=== PATIENT | male | born 1960 | race Caucasian/White ===

== ENCOUNTER 2019-09-29 10:28 | Emergency (ER) | payer MEDICAID ==
[~2019-09-29] VITALS: Ht 167.6 cm; Wt 83.9 kg
[2019-09-29 10:34] VITALS: BP_SYST 131
[2019-09-29] MEDS ORDERED: PHE25 GT (10:50)
[2019-09-29] MEDS ORDERED: MOM GT (10:50)
[2019-09-29] MEDS ORDERED: LIP40 GT (10:50)
[2019-09-29] MEDS ORDERED: CARV25TA55 GT (10:50)
[2019-09-29] MEDS ORDERED: LEVE500T53 GT (10:50)
[2019-09-29] MEDS ORDERED: INSU100V SQ (10:50)
[2019-09-29] MEDS ORDERED: ACET325T53 GT (10:50)
[2019-09-29] MEDS ORDERED: [UNRECOGNIZED DRUG - OTHER] GT (10:50)
[2019-09-29] MEDS ORDERED: NOR10 GT (10:50)
[2019-09-29] MEDS ORDERED: FAMO-132 GT (10:50)
[2019-09-29] MEDS ORDERED: COLL100 GT (10:50)
[2019-09-29 11:05] LABS: BASOPHILS % (AUTO) 0.3 % (0.0-2.0); EOSINOPHILS # (AUTO) 0.2 K/uL (0.0-0.4); EOSINOPHILS % (AUTO) 1.7 % (0.0-4.0); HEMATOCRIT 42.6 % (36-54); HEMOGLOBIN 14.1 g/dL (14.0-18.0); LYMPHOCYTES # (AUTO) 1.9 K/uL (1.0-5.5); LYMPHOCYTES % (AUTO) 17.2 % (20.5-51.5); MEAN CORPUSCULAR HEMOGLOBIN 31 pg (27-31); MEAN CORPUSCULAR HGB CONC 33 % (32-36); MEAN CORPUSCULAR VOLUME 93 fL (79.0-98.0); MONOCYTES # (AUTO) 1.1 K/uL (0.0-1.0); MONOCYTES % (AUTO) 9.7 % (1.7-9.3); NEUTROPHILS % (AUTO) 71.1 % (40.0-70.0); PLATELET COUNT (AUTO) 170 K/uL (130-430); RED BLOOD CELL COUNT(AUTO) 4.57 MIL/uL (4.2-6.2); RED CELL DISTRIBUTION WIDTH 15.3 % (9.0-15.0); WHITE BLOOD COUNT (AUTO) 11.3 K/uL (4.8-10.8)
[2019-09-29] MEDS: NACL 0.9% 1,000 ML IV ONE (11:13)
[2019-09-29] MEDS: ASPIRIN 81 MG TAB.CHEW PO ONE (11:14)
[2019-09-29 11:19] LABS: ANION GAP 3 (5-15); CALCIUM 8.1 mg/dL (8.4-11.0); CHLORIDE 101 mmol/L (98-107); CREATININE 0.97 mg/dL (0.55-1.30); GLUCOSE 99 mg/dL (70-99); POTASSIUM 4.2 mmol/L (3.5-5.1); SODIUM SERUM 138 mmol/L (136-145); UREA NITROGEN, BLOOD 23 mg/dL (8-21)
[2019-09-29 11:22] LABS: GFR AFRICAN AMERICAN 103 mL/min (>90)
[2019-09-29 11:27] LABS: ALANINE AMINOTRANSFERASE 24 U/L (12-78); ASPARTATE AMINOTRANSFERASE 19 U/L (10-37); TOTAL BILIRUBIN 0.4 mg/dL (0.0-1.0)
[2019-09-29 14:10] VITALS: BP_SYST 131
== END 2019-09-29 14:10 | disposition home or self-care (01) ==
LOC: SED 10:28
DX: R07.89 Other chest pain (principal); I10 Essential (primary) hypertension; E11.9 Type 2 diabetes mellitus without complications; K21.9 Gastro-esophageal reflux disease without esophagitis; Z86.79 Personal history of other diseases of the circulatory system; Z79.899 Other long term (current) drug therapy
CPT/HCPCS: 36415; 71045; 80053; 84484; 85025; 93005; 99285; J7030; 96360